=== PATIENT | male | born 1950 | race Caucasian/White ===

== ENCOUNTER 2016-07-23 12:19 | Observation (INO) | payer MEDICARE, BC ==
--- NOTE | 2016-07-23 13:23 | EDM.PDOC ---
ED HISTORY OF PRESENT ILLNESS - General Chief Complaint: Cardiovascular Problem Stated Complaint: IRREGULAR HEART RATE Time Seen by Provider: 07/23/16 12:19 Source: Reports: Patient History Limitations: Reports: No limitations - History of Present Illness INITIAL COMMENTS - FREE TEXT/NARRATIVE: c/o heart fluttering awoke at 4 AM with fluttering in chest, last 1.5h, no CP no sob, no cough, no dyspnea, no f/c/d meds include metoprolol, furosemide, spironolactone, hydralazine pt denies previous cardiac issues, says he had fluttering once last yr, and that he had an arrhythmia yrs ago at [facility] in [place] after a procedure HR 90 to 120 here - Related Data Allergies/ADRs: Allergies Allergy/AdvReac Type Severity Reaction Status Date / Time No Known Allergies Allergy Verified 07/23/16 12:55 ED ROS GENERAL - Review of Systems Review Of Systems: See Below Constitutional: Reports: no symptoms HEENT: Reports: No symptoms Respiratory: Reports: no symptoms Cardiovascular: Reports: Palpitations Endocrine: Reports: no symptoms GI/Abdominal: Reports: No symptoms : Reports: no symptoms Musculoskeletal: Reports: no symptoms Skin: Reports: no symptoms Neurological: Reports: no symptoms Psychiatric: Reports: No symptoms Hematologic/Lymphatic: Reports: no symptoms Immunologic: Reports: no symptoms ED EXAM, GENERAL - Physical Exam Exam: See Below Exam Limited By: Other (sitting in w/c on arrival, alert, cooperative, non ill, no distress) General Appearance: alert, WD/WN, no apparent distress Ears: normal external exam, normal canal, hearing grossly normal, normal TMs Ear Exam: bilateral ear: auricle normal, canal normal, TM normal Nose: normal inspection, normal mucosa, no blood Throat/Mouth: Normal inspection, Normal lips, Normal oropharynx, Normal voice, No airway compromise Head: atraumatic, normocephalic Neck: normal inspection, supple, non-tender, full range of motion Respiratory/Chest: no respiratory distress, lungs clear, normal breath sounds, no accessory muscle use, chest non-tender Cardiovascular: regular rate, rhythm, no edema, no gallop, no rub, other (2/6 VERÓNICA at LSB, quiet precordium) GI/Abdominal: normal bowel sounds, soft, non tender, no organomegaly, no distention, no mass (Male) Exam: Circumcised Back Exam: normal inspection Extremities: normal inspection, normal range of motion, non-tender, normal capillary refill, no pedal edema Neurological: alert, oriented, CN II-XII intact, normal cognition, normal gait, no motor/sensory deficits Psychiatric: normal affect, normal mood Skin Exam: Warm, Dry, Intact, Normal color, No rash Lymphatic: no adenopathy Course - Vital Signs Last Recorded V/S: Last Vital Signs Temp 37.5 C 07/23/16 12:58 Pulse 120 H 07/23/16 12:58 Resp 20 07/23/16 12:58 BP 102/62 07/23/16 12:58 Pulse Ox 97 07/23/16 12:58 - Orders/Labs/Meds Orders: Active Orders 24 hr Category Date Time Status Chest 2V [CR] Stat Exams 07/23/16 12:28 Taken EKG 12 Lead [EK] Routine Ther 07/23/16 12:27 Ordered Labs: Laboratory Tests 07/23/16 07/23/16 07/23/16 Range/Units 12:35 12:35 12:35 WBC 7.7 (4.5-12.0) X10-3/uL RBC 5.86 H (4.30-5.75) x10(6)uL Hgb 16.3 H (11.5-15.5) g/dL Hct 48.7 (30.0-51.3) % MCV 83.1 (80-96) fL MCH 27.7 (27.7-33.6) pg MCHC 33.4 (32.2-35.4) g/dL RDW 14.2 (11.5-15.5) % Plt Count 202 (125-369) X10(3)uL MPV 8.6 (7.4-10.4) fL Neut % (Auto) 64.1 (46-82) % Lymph % (Auto) 19.7 (13-37) % Laporte % (Auto) 11.1 (4-12) % Eos % (Auto) 3 (1.0-5.0) % Baso % (Auto) 2 (0-2) % Neut # 5.0 (1.6-8.3) # Lymph # 1.5 (0.6-5.0) # Laporte # 0.9 (0.0-1.3) # Eos # 0.2 (0.0-0.8) # Baso # 0.1 (0.0-0.2) # Sodium 137 (135-145) mmol/L Potassium 3.7 (3.5-5.3) mmol/L Chloride 108 (100-110) mmol/L Carbon Dioxide 23 (23-29) mmol/L BUN 16 (8-23) mg/dL Creatinine 1.2 (0.6-1.3) mg/dL Est Cr Clr Drug Dosing 75.28 mL/min Estimated GFR (MDRD) > 60 (>60) BUN/Creatinine Ratio 13.3 (9-20) Glucose 149 H (80-116) mg/dL Calcium 8.5 L (8.6-10.2) mg/dL Magnesium (1.8-2.5) mg/dL Total Bilirubin 0.6 (0.1-1.3) mg/dL AST 30 H (5-27) IU/L ALT 22 (14-26) IU/L Alkaline Phosphatase 41 L (56-112) IU/L Troponin I 0.05 (0.02-0.06) NG/ML C-Reactive Protein < 0.5 (0.0-1.0) mg/dL B-Natriuretic Peptide (0-100) pg/mL Total Protein 7.8 (6.0-8.0) g/dL Albumin 4.0 (3.2-4.6) g/dL Globulin 3.8 g/dL Albumin/Globulin Ratio 1.1 07/23/16 07/23/16 Range/Units 12:35 12:45 WBC (4.5-12.0) X10-3/uL RBC (4.30-5.75) x10(6)uL Hgb (11.5-15.5) g/dL Hct (30.0-51.3) % MCV (80-96) fL MCH (27.7-33.6) pg MCHC (32.2-35.4) g/dL RDW (11.5-15.5) % Plt Count (125-369) X10(3)uL MPV (7.4-10.4) fL Neut % (Auto) (46-82) % Lymph % (Auto) (13-37) % Laporte % (Auto) (4-12) % Eos % (Auto) (1.0-5.0) % Baso % (Auto) (0-2) % Neut # (1.6-8.3) # Lymph # (0.6-5.0) # Laporte # (0.0-1.3) # Eos # (0.0-0.8) # Baso # (0.0-0.2) # Sodium (135-145) mmol/L Potassium (3.5-5.3) mmol/L Chloride (100-110) mmol/L Carbon Dioxide (23-29) mmol/L BUN (8-23) mg/dL Creatinine (0.6-1.3) mg/dL Est Cr Clr Drug Dosing mL/min Estimated GFR (MDRD) (>60) BUN/Creatinine Ratio (9-20) Glucose (80-116) mg/dL Calcium (8.6-10.2) mg/dL Magnesium 2.0 (1.8-2.5) mg/dL Total Bilirubin (0.1-1.3) mg/dL AST (5-27) IU/L ALT (14-26) IU/L Alkaline Phosphatase (56-112) IU/L Troponin I (0.02-0.06) NG/ML C-Reactive Protein (0.0-1.0) mg/dL B-Natriuretic Peptide 243 H (0-100) pg/mL Total Protein (6.0-8.0) g/dL Albumin (3.2-4.6) g/dL Globulin g/dL Albumin/Globulin Ratio - Re-Assessments/Exams Free Text/Narrative Re-Assessment/Exam: 07/23/16 14:32 tests reviewed with pt, old EKG from [facility] obtained (none in [place], none here) from 08-14-16 which showed 1st degree AVB at 206 ms, sinus sherman at 56 bpm, otherwise with no significant change c/w 02-11-07/23/16 14:42 d/w Dr Palomares who accepted pt for r/o, pt agreed, meds not in computer, however he has prefilled meds that show hydralazine 100 mg bid, furosemide 40 mg bid, ASA EC 81 mg daily, hydralazine 100 mg tid, spironolactone 25 mg daily, oxybutynin ER 5 mg daily, metoprolol 100 mg BID, amlodipine 2.5 mg daily Departure - Departure Time of Disposition: 14:55 Disposition: DC/Tfer to [facility] Reason for Transfer *Q: Primary PCI Indicated Condition: fair Clinical Impression: Ectopic atrial tachycardia, Prolonged QT interval, History of first degree AV block Referrals: Tyron Dawson MD [Primary Care Provider] - Forms: ED Department Discharge - My Orders Last 24 Hours: My Active Orders 07/23/16 12:27 EKG 12 Lead [EK] Routine 07/23/16 12:28 Chest 2V [CR] Stat - Assessment/Plan Last 24 Hours: My Active Orders 07/23/16 12:27 EKG 12 Lead [EK] Routine 07/23/16 12:28 Chest 2V [CR] Stat
[2016-07-23] MEDS ORDERED: Enoxaparin 60 MG/0.6 ML Syringe SUBCUT SCH (15:45)
[2016-07-23] MEDS ORDERED: Sodium Chloride 0.9% 10 ML Syringe FLUSH PRN (15:49)
[2016-07-23] MEDS ORDERED: Metoprolol Tartrate 100 MG Tab PO ONE (17:00)
[2016-07-23] MEDS ORDERED: METOPROLOL TARTRATE 100 MG PO SCH (19:00)
[2016-07-23] MEDS ORDERED: ASPIRIN 81 MG PO SCH (19:00)
[2016-07-23] MEDS: HYDRALAZINE HCL 100 MG PO SCH (19:20)
[2016-07-23] MEDS ORDERED: Non-Formulary Medication 1 Each (Furosemide [Furosemide] 40 MG) PO SCH (21:00)
--- NOTE | 2016-07-23 23:55 | HP ---
ADMISSION DATE: 07/23/2016 CHIEF COMPLAINT: Rapid irregular heartbeat giving him a "funny feeling in his chest." HISTORY OF PRESENT ILLNESS: This patient is a 66-year-old male with a previous history of obesity, hypertension, obstructive sleep apnea, and stasis edema of the lower extremities, who was admitted after being seen in the emergency room with the above chief complaint. The patient states that he was doing well until this morning. He awoke early in the morning with this funny sensation in his chest. He then noticed he had to go to the bathroom. He urinated and came back to bed and his checked his pulse and she noticed it was quite fast. He laid down for a while. He said he had to get up a couple of more times to urinate, but it just has not gotten any better. He says he will slow down some and if he exerts himself he notices that he just feels this rapid irregular beat. He denies any significant shortness of breath or if there is some, it is very minimal. He has had no nausea or vomiting. No chest pain has been associated with it. There has been no diaphoresis. He said this happened once before when he was at [facility] getting a CSF leak plugged in his head. He said it only lasted a few minutes, and then resolved. He thinks maybe he has had it about a year ago also, but again, just for short time and never did anything different. He has a longstanding history of hypertension, but no previous history of heart disease. Denies any history of diabetes. He has been taking hydralazine 100 mg t.i.d. along with metoprolol 100 mg b.i.d., spironolactone 25 mg daily, Lasix 40 mg b.i.d., amlodipine 2.5 mg daily, aspirin 81 mg daily, and oxybutynin extended-release 5 mg daily. ALLERGIES: None that are known. SOCIAL HISTORY: He has never used tobacco products other than chewing tobacco and was always very minimal. He said he quit that a couple of years ago. Alcohol rarely now. He said had in the past he drank a fair amount, but that has been a number of years now. 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 He was at [facility] and had operative procedure done x3. Eventually, it was plugged. As I said, he has longstanding history of hypertension. He has no previous other surgeries. He was diagnosed with obstructive sleep apnea 5 or 6 years ago and has been using CPAP machine since with good results. No previous history of diabetes. PAST SURGICAL HISTORY: No other surgeries other than teeth extraction. FAMILY HISTORY: Both parents have . Father he thinks was in his 80s and had complications of heart attacks and strokes. Mother had MS and from complications of that in her 70s. He had 1 brother, who in his 30s, he apparently had some trauma and eventually from pneumonia. REVIEW OF SYSTEMS: Full review of systems was discussed. Other than that mentioned above, he recently developed some right lateral knee pain a couple of weeks ago. He says he was just standing and his foot slipped outward. He did not think much of it after some initial pain, but then has since had this pain in the lateral aspect of the right knee, especially with movement or long periods of standing. No joint effusion, erythema, or warmth has been noted. He does admit to nocturia x1, but thinks it may be related to the diuretic he takes at 1900 hours. He has had some problems with urge incontinence in the past. He does admit to some occasional low back pain without radiation. No bowel incontinence has been noted. He has had no abdominal complaints or GI complaints other than some occasional bright red blood in the stool, but he thinks that maybe related to the hemorrhoids. PHYSICAL EXAMINATION: VITAL SIGNS: At this time, showed his initial temp to be 99.5, pulse is 120 and regular, blood pressure 102/62, respirations are 20, and O2 saturation on room air is 97%. Height was 6 foot 5 inches, weight is 453 pounds. GENERAL: Well-developed large gentleman, who otherwise appears to be in no acute distress. HEENT: Head was normocephalic and atraumatic. Pupils are round, react well to light and accommodation. Extraocular movements were intact. Sclerae and conjunctivae were clear. He has bilateral cataracts. TMs were both clear. Nasal passages were open. No discharge is noted at this time. The pharynx and palate were unremarkable except for upper plate there were no teeth noted in the mandible. NECK: Supple. Carotid pulses strong and equal without bruits. Thyroid was not enlarged. Range of motion of his neck is decreased without spinous process tenderness. MUSCULOSKELETAL: No actual CVA tenderness was noted. He does have a little bit of tenderness in the low lumbar region at approximately L5 to palpation in the midline. Range of motion was decreased in the lumbar spine. Straight leg raising was negative to 90 degrees, however. CHEST: Clear to auscultation and percussion. No chest wall tenderness was noted. CARDIOVASCULAR: Revealed a normal S1 and S2 with a soft systolic murmur heard along the left sternal border. The above-mentioned tachycardia was noted and actually was fairly regular. ABDOMEN: Soft, obese, nontender without organomegaly or masses. Bowel sounds are normal. No bruits are noted. GENITALIA: Revealed a normal circumcised male with some mild scrotal swelling, presumably secondary to hydroceles. No other masses were identified. EXTREMITIES: Just had trace to 1+ edema about the ankles, but it was minimal. No ulcerations or areas of breakdown. He has some point tenderness along the lateral joint line in the right knee without joint effusion, erythema, or warmth. No crepitation was noted. No ulcerations or areas of breakdown were noted in the lower extremities. Capillary refill was normal. SKIN: Positive for multiple seborrheic keratosis, otherwise no ulcerations or other abnormalities were identified. LABORATORY DATA: Initial EKG showed what appears to be an atrial tachycardia at a rate of approximately 120 to 130, may be an SVT with 2:1, conduction but it is very difficult to see. Chest x-ray was unremarkable. No significant cardiomegaly. No infiltrates were identified. Some degenerative changes were noted in his thoracic spine. CBC revealed a hemoglobin of 16.3, hematocrit of 48.7, white count is 7700 with normal differential, and platelets were normal at 202,000. Sodium 137, potassium of 3.7, chloride is 108, CO2 was 23, creatinine 1.2, BUN of 16, random glucose 149, calcium 8.5, and magnesium was normal 2. Liver functions were normal except for slight elevation in AST at 30. Troponin was 0.05. C-reactive protein was less than 0.5. BNP was slightly elevated at 243. D-dimer was normal total protein 7.8 and albumin of 4.0. IMPRESSION: 1. Symptomatic, appears to be in atrial tachycardia, wondering if it is 2:1 conduction. 2. History of hypertension. 3. Obstructive sleep apnea. 4. Obesity. 5. History of urge incontinence. PLAN: We will check a TSH in the morning. I am going to increase his metoprolol to 150 mg b.i.d. We will monitor his O2 saturation through the night while on CPAP. He asked me about his heart murmur and apparently that is new. We will see if we can get him scheduled for an echocardiogram in the near future. We will recheck a serum troponin to be sure no cardiac damage has been done and we will proceed from there. /[id number] /GERALD
[2016-07-24] MEDS ORDERED: FUROSEMIDE 40 MG PO SCH (08:00)
[2016-07-24] MEDS: HYDRALAZINE HCL 100 MG PO SCH (08:25)
[2016-07-24 08:28] VITALS: BP 140/61
[2016-07-24] MEDS ORDERED: Metoprolol Tartrate 50 MG Tab PO SCH (09:00)
--- NOTE | 2016-07-24 12:03 | CR ---
INDICATION: Palpitations. CHEST: Three PA views and a lateral view of the chest were obtained 2016 - no comparisons available. Overlying snaps are noted. The heart is normal in size and shape. Diaphragm leaves are somewhat flattened, compatible with COPD along with the increased AP diameter and hyperaeration of mild degree. Bridging hyperostotic changes are noted in the mid to lower thoracic spine. A definite active infiltrate or effusion was not identified. IMPRESSION: 1. No acute process. 2. Probable COPD. 3. DJD spine. MTDD
--- NOTE | 2016-07-24 12:34 | PN ---
DATE SEEN: 07/24/2016 SUBJECTIVE: Mr. Soto is seen today for followup. During the night, his rhythm converted back to sinus rhythm with much lower rate and tachycardia resolved. He says this morning, he actually feels good and has had no difficulties whatsoever. Denies any nausea, vomiting, or diarrhea. He had a CPAP brought in and he slept well. He has had no other complaints or concerns other than constipation. He says now that he takes two of his senna-S b.i.d. for that. OBJECTIVE: GENERAL: He appears to be quite comfortable and at this time in no acute distress. VITAL SIGNS: Blood pressure 140/61, pulse is 62 and at this time regular, respirations were 20 and unlabored, O2 saturation was 97%. HEENT: Unremarkable. CHEST: Completely clear. CARDIOVASCULAR: Revealed a regular rhythm without murmur, rub, or gallop. ABDOMEN: Quite obese, but otherwise unremarkable. EXTREMITIES: Had just a trace edema about the ankles, otherwise no other abnormalities were noted. LABORATORY DATA: Followup troponin was slightly elevated yesterday afternoon at 0.08, it went down to 0.05, but I believe that is probably related to the tachycardia he had as he had no chest pain or other abnormality. IMPRESSION: 1. Recent episode of what appeared to be atrial fib/flutter with rapid ventricular rate that has since resolved. 2. Hypertension. 3. Obstructive sleep apnea. 4. Obesity. 5. History of urge incontinence. PLAN: At this point, recommended no changes. He will be discharged home, and we will arrange for an outpatient echocardiogram, await results of his TSH. We will keep him on the increased dose of metoprolol 150 mg b.i.d. He will follow up with his regular physician at the end of the week for recheck. If there are other problems or new symptoms are noted to let us know and we can certainly re- evaluate. /[id number] /GERALD
[2016-07-24] MEDS ORDERED: Enoxaparin 60 MG/0.6 ML Syringe SUBCUT SCH (16:00)
== END 2016-07-24 14:20 | disposition home or self-care (01) ==
LOC: FB.ED 12:19 → FB.MS 15:00
PROVIDERS: ADMIT Family Medicine; ATTEND Family Medicine
DX: I47.1 Supraventricular tachycardia (principal); I10 Essential (primary) hypertension; G47.33 Obstructive sleep apnea (adult) (pediatric); E66.9 Obesity, unspecified; R32 Unspecified urinary incontinence; Z98.890 Other specified postprocedural states; Z79.82 Long term (current) use of aspirin; Z79.899 Other long term (current) drug therapy
CPT/HCPCS: 36415; 71020; 80053; 83735; 83880; 84443; 84484; 85025; 85379; 86140; 93005; 96372; 99284; A9270; G0378; J1650; J7050; 99219; 99285

== ENCOUNTER 2018-10-22 07:41 | Day surgery (SDC) | payer MEDICARE, BC ==
[2018-10-22] MEDS ORDERED: Midazolam 1 MG/ML 2 ML SDV IV ONE (07:42)
[2018-10-22] MEDS ORDERED: Propofol 200 MG/20 ML SDV IV ONE (07:42)
[2018-10-22] MEDS: Lactated Ringers 1,000 ML IV SCH (08:47)
--- NOTE | 2018-10-22 10:02 | PCM.OPNOTE ---
- General Post-Op/Procedure Note Date of Surgery/Procedure: 10/22/18 Operative Procedure(s): c scope Findings: normal exam to transverse colon Pre Op Diagnosis: screening Post-Op Diagnosis: nl exam to transverse colon Anesthesia Technique: General LMA Primary Surgeon: Dmitri Garvey Anesthesia Provider: Lenny Moran Pathology: incomplete exam Complications: None Condition: Good Free Text/Narrative:: see dictation
[2018-10-22 12:16] VITALS: BP 160/93
--- NOTE | 2018-10-22 16:23 | OR ---
DATE OF OPERATION: 10/22/2018 SURGEON: Dmitri Garvey MD PROCEDURE PERFORMED: Colonoscopy to mid-transverse colon. PREOPERATIVE DIAGNOSIS: Need for screening C-scope. POSTOPERATIVE DIAGNOSIS: Normal exam. INDICATIONS FOR PROCEDURE: This is a 68-year-old white male referred for screening colonoscopy. DESCRIPTION OF PROCEDURE: After an excellent LMA anesthetic was administered, which was performed in the operating room due to the patient's size of approximately 400 pounds. The patient was placed in left lateral position. Digital rectal exam was performed. No marked abnormality was noted. The flexible colonoscope was inserted and advanced to the mid-transverse colon. At this point, we were unable to advance the scope farther due to the size of his pannus. Normal maneuvers to flatten out any loop were unsuccessful due to the patient's obesity. The scope was then slowly withdrawn. The following findings were noted. Transverse colon, unremarkable. Descending colon, unremarkable. Sigmoid and rectum, unremarkable. We will be obtaining a contrast barium enema to clear the remainder of his colon. /[id number] /GERALD
== END 2018-10-22 09:47 | disposition home or self-care (01) ==
LOC: FB.SDS 07:41
PROVIDERS: ATTEND Surgery
DX: Z12.11 Encounter for screening for malignant neoplasm of colon (principal); I10 Essential (primary) hypertension; I25.110 Atherosclerotic heart disease of native coronary artery with unstable angina pectoris; E78.00 Pure hypercholesterolemia, unspecified; F41.9 Anxiety disorder, unspecified; F41.0 Panic disorder [episodic paroxysmal anxiety]; G47.33 Obstructive sleep apnea (adult) (pediatric); E66.01 Morbid (severe) obesity due to excess calories; Z68.43 Body mass index [BMI] 50.0-59.9, adult; Z99.89 Dependence on other enabling machines and devices; Z95.5 Presence of coronary angioplasty implant and graft; Z87.891 Personal history of nicotine dependence; Z79.82 Long term (current) use of aspirin; Z79.899 Other long term (current) drug therapy
CPT/HCPCS: 00812-QZ; J2250; J2704; J7120

== ENCOUNTER 2021-03-11 15:50 | Emergency (ER) | payer MEDICARE, BC ==
[2021-03-11] MEDS ORDERED: Diltiazem 25 MG/5 ML SDV IVPUSH ONE (16:08)
[2021-03-11] MEDS ORDERED: ALPRAZolam 1 MG Tab PO ONE (16:11)
[2021-03-11] MEDS ORDERED: Famotidine 20 MG/2 ML SDV IVPUSH PRN (16:32)
[2021-03-11] MEDS ORDERED: EPINEPHrine 1 MG/ML SDV IM PRN (16:32)
[2021-03-11] MEDS ORDERED: methylPREDNISolone Sodium Succinate 125 MG/2 ML SDV IVPUSH PRN (16:32)
[2021-03-11] MEDS ORDERED: diphenhydrAMINE 50 MG/ML SDV IVPUSH PRN (16:32)
[2021-03-11] MEDS ORDERED: Bamlanivimab 700 MG, ETESEVIMAB 1,400 MG in Sodium Chloride 0.9% 100 ML IV ONE (16:32)
[2021-03-11] MEDS ORDERED: Sodium Chloride 0.9% 10 ML Syringe FLUSH SCH (16:45)
--- NOTE | 2021-03-11 16:47 | EDM.PDOC ---
ED HPI GENERAL MEDICAL PROBLEM - General Chief Complaint: Fever Stated Complaint: body aches , fever , shortness of breath Time Seen by Provider: 03/11/21 16:10 Source of Information: Reports: Patient, Provider History Limitations: Reports: No Limitations - History of Present Illness INITIAL COMMENTS - FREE TEXT/NARRATIVE: pt is sent in from clinic with symptoms of sob , cough , weakness , fatigue had COVID test done : was positive pt also had AFib with RVR : 180- 170's pt had RR of 30's was not taken by the Er due to these symptoms States he is not sure where he got contact from had been vaccinated in August - Related Data Allergies Allergy/AdvReac Type Severity Reaction Status Date / Time No Known Allergies Allergy Verified 10/21/18 14:50 Home Meds: Home Meds Aspirin [Halfprin] 81 mg PO 07/23/16 [History] Furosemide 40 mg PO BID 07/23/16 [History] Oxybutynin [Oxybutynin ER] 5 mg PO 07/23/16 [History] Spironolactone [Aldactone] 25 mg PO DAILY 07/23/16 [History] amLODIPine Besylate [Norvasc] 2.5 mg PO DAILY 07/23/16 [History] hydrALAZINE HCl [Hydralazine HCl] 100 mg PO ,,07/23/16 [History] ALPRAZolam [Alprazolam] 0.5 - 1 tab PO TID PRN 10/21/18 [History] Acetaminophen/Diphenhydramine [Tylenol Pm Ex-Strength Caplet] 2 tab PO BEDTIME PRN 10/21/18 [History] Docusate Sodium/Sennosides [Senna Plus] 2 tab PO DAILY 10/21/18 [History] Isosorbide Mononitrate [Isosorbide Mononitrate ER] 1 tab PO DAILY 10/21/18 [History] Melatonin 1 tab PO BEDTIME PRN 10/21/18 [History] Nitroglycerin [Nitrostat] 1 tab SL ASDIRECTED PRN 10/21/18 [History] Tamsulosin HCl [Flomax] 1 cap PO DAILY 10/21/18 [History] atorvaSTATin [Lipitor] 40 mg PO DAILY 10/21/18 [History] Metoprolol Tartrate [Lopressor] 100 mg PO 03/11/21 [History] dexAMETHasone [Dexamethasone] 6 mg PO DAILY #15 tablet 03/11/21 [Rx] Past Medical History HEENT History: Reports: Cataract 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 Cardiovascular History: Reports: CAD, Hypertension Respiratory History: Reports: Sleep Apnea Gastrointestinal History: Reports: None Genitourinary History: Reports: Urinary Incontinence, Other (See Below) Other Genitourinary History: urgency Musculoskeletal History: Reports: None Other Neuro History: HYDROCELE Psychiatric History: Reports: None Endocrine/Metabolic History: Reports: Obesity/BMI 30+ Hematologic History: Reports: None Immunologic History: Reports: None Oncologic (Cancer) History: Reports: None Dermatologic History: Reports: None - Past Surgical History Head Surgeries/Procedures: Reports: None Other HEENT Surgeries/Procedures: SEPTOPLASTY Cardiovascular Surgical History: Reports: Coronary Artery Stent Respiratory Surgical History: Reports: None GI Surgical History: Reports: None Male Surgical History: Reports: None Endocrine Surgical History: Reports: None Neurological Surgical History: Reports: Other (See Below) Other Neurological Surgeries/Procedures: CSF leak repair x 3 Musculoskeletal Surgical History: Reports: None Oncologic Surgical History: Reports: None Dermatological Surgical History: Reports: None Social & Family History - Family History Family Medical History: No Pertinent Family History - Caffeine Use Caffeine Use: Reports: Tea ED ROS GENERAL - Review of Systems Review Of Systems: See Below Constitutional: Reports: Chills, Malaise, Weakness, Fatigue HEENT: Reports: No Symptoms Respiratory: Reports: Shortness of Breath, Cough Cardiovascular: Reports: Dyspnea on Exertion Endocrine: Reports: No Symptoms GI/Abdominal: Reports: No Symptoms Musculoskeletal: Reports: No Symptoms Skin: Reports: No Symptoms Neurological: Reports: Dizziness Psychiatric: Reports: Anxiety Hematologic/Lymphatic: Reports: No Symptoms Immunologic: Reports: No Symptoms ED EXAM, GENERAL - Physical Exam Exam: See Below Exam Limited By: No Limitations General Appearance: Alert, WD/WN, No Apparent Distress, Anxious Eye Exam: Bilateral Eye: EOMI Nose: Normal Mucosa Throat/Mouth: Normal Oropharynx Head: Atraumatic, Normocephalic Neck: Supple, Non-Tender Respiratory/Chest: Chest Non-Tender, Decreased Breath Sounds, Rales Cardiovascular: Regular Rate, Rhythm GI/Abdominal: Soft, Non-Tender Back Exam: Full Range of Motion. No: CVA Tenderness (R), CVA Tenderness (L) Extremities: Normal Range of Motion, Non-Tender Neurological: Alert, Oriented, CN II-XII Intact Psychiatric: Anxious Skin Exam: Warm, Dry, Intact Lymphatic: No Adenopathy #1 Interpretation EKG Date: 03/11/21 Time: 15:48 Rhythm: A-Fib Rate (Beats/Min): 174 [place]: LAD-Left [place] Deviation P-Wave: Variable QRS: Other (Left anterior fascicular block) ST-T: Other (irregular) Comparison: NA - No Prior EKG EKG Interpretation Comments: Afib with rapid ventricular response #2 Interpretation EKG Date: 03/11/21 Time: 17:00 Rhythm: A-Fib Rate (Beats/Min): 135 [place]: LAD-Left [place] Deviation P-Wave: Variable ST-T: Normal QT: Prolonged (borderline) Course - Vital Signs Last Recorded V/S: Last Vital Signs Temp 36.6 C 03/11/21 16:08 Pulse 91 03/11/21 19:05 Resp 28 H 03/11/21 19:05 BP 122/83 03/11/21 19:05 Pulse Ox 93 L 03/11/21 19:05 - Orders/Labs/Meds Orders: Active Orders 24 hr Category Date Time Status Vital Signs [RC] Q15M Care 03/11/21 16:32 Active Chest 1V Frontal [CR] Stat Exams 03/11/21 16:10 Taken TROPONIN I [CHEM] Stat Lab 03/11/21 19:00 Received EPINEPHrine [Adrenalin] Med 03/11/21 16:32 Active 0.3 mg IM ASDIRECTED PRN Famotidine [Pepcid] Med 03/11/21 16:32 Active 20 mg IVPUSH ASDIRECTED PRN Sodium Chloride 0.9% [Saline Flush] Med 03/11/21 16:45 Active 30 ml FLUSH ASDIRECTED diphenhydrAMINE [Benadryl] Med 03/11/21 16:32 Active 50 mg IVPUSH ASDIRECTED PRN methylPREDNISolone Sod Succ [Solu-MEDROL] Med 03/11/21 16:32 Active 125 mg IVPUSH ASDIRECTED PRN EKG 12 Lead [EK] Routine Ther 03/11/21 16:09 Ordered EKG 12 Lead [EK] Routine Ther 03/11/21 16:57 Ordered Medication Orders Diphenhydramine HCl (Diphenhydramine 50 Mg/Ml Sdv) 50 mg IVPUSH ASDIRECTED PRN PRN Reason: hypersensitivity reaction Epinephrine HCl (Epinephrine 1 Mg/Ml Sdv) 0.3 mg IM ASDIRECTED PRN PRN Reason: hypersensitivity reaction Famotidine (Famotidine 20 Mg/2 Ml Sdv) 20 mg IVPUSH ASDIRECTED PRN PRN Reason: hypersensitivity reaction Methylprednisolone Sodium Succinate (Methylprednisolone Sodium Succinate 125 Mg/2 Ml Sdv) 125 mg IVPUSH ASDIRECTED PRN PRN Reason: hypersensitivity reaction Sodium Chloride (Sodium Chloride 0.9% 10 Ml Syringe) 30 ml FLUSH ASDIRECTED JEISON Last Admin: 03/11/21 17:41 Dose: 30 ml Documented by: REGINO Labs: Laboratory Tests 03/11/21 03/11/21 03/11/21 Range/Units 16:00 16:00 16:00 WBC 10.8 H (3.2-10.1) x10-3/uL RBC 5.74 (3.90-5.90) x10(6)uL Hgb 15.9 (12.9-17.7) g/dL Hct 47.9 (38.3-50.1) % MCV 83.5 (80.8-98.7) fL MCH 27.6 (27.0-33.3) pg MCHC 33.1 (28.7-35.3) g/dL RDW 15.2 H (12.4-15.0) % Plt Count 167 (117-477) x10(3)uL MPV 7.8 (6.7-11.0) fL Add Manual Diff Yes Neutrophils % (Manual) 86 H (46-82) % Lymphocytes % (Manual) 6 L (13-37) % Monocytes % (Manual) 8 (4-12) % Anisocytosis Rare D-Dimer, Quantitative (0.0-0.59) mg/LFEU Sodium 138 (135-145) mmol/L Potassium 3.2 L (3.5-5.3) mmol/L Chloride 103 (100-110) mmol/L Carbon Dioxide 18 L (21-32) mmol/L BUN 26 H (7-18) mg/dL Creatinine 1.8 H (0.70-1.30) mg/dL Est Cr Clr Drug Dosing TNP Estimated GFR (MDRD) 37 L (>60) BUN/Creatinine Ratio 14.4 (9-20) Glucose 134 H (80-116) mg/dL Calcium 8.5 L (8.6-10.2) mg/dL Total Bilirubin 1.2 (0.1-1.3) mg/dL AST 48 H (5-25) IU/L ALT 55 H (12-36) U/L Alkaline Phosphatase 48 L (56-112) IU/L Troponin I 76.1 H* (4.0-60.3) pg/mL Total Protein 7.6 (6.0-8.0) g/dL Albumin 3.0 L (3.2-4.6) g/dL Globulin 4.6 g/dL Albumin/Globulin Ratio 0.7 03/11/ Range/Units 16:00 WBC (3.2-10.1) x10-3/uL RBC (3.90-5.90) x10(6)uL Hgb (12.9-17.7) g/dL Hct (38.3-50.1) % MCV (80.8-98.7) fL MCH (27.0-33.3) pg MCHC (28.7-35.3) g/dL RDW (12.4-15.0) % Plt Count (117-477) x10(3)uL MPV (6.7-11.0) fL Add Manual Diff Neutrophils % (Manual) (46-82) % Lymphocytes % (Manual) (13-37) % Monocytes % (Manual) (4-12) % Anisocytosis D-Dimer, Quantitative 0.88 H (0.0-0.59) mg/LFEU Sodium (135-145) mmol/L Potassium (3.5-5.3) mmol/L Chloride (100-110) mmol/L Carbon Dioxide (21-32) mmol/L BUN (7-18) mg/dL Creatinine (0.70-1.30) mg/dL Est Cr Clr Drug Dosing Estimated GFR (MDRD) (>60) BUN/Creatinine Ratio (9-20) Glucose (80-116) mg/dL Calcium (8.6-10.2) mg/dL Total Bilirubin (0.1-1.3) mg/dL AST (5-25) IU/L ALT (12-36) U/L Alkaline Phosphatase (56-112) IU/L Troponin I (4.0-60.3) pg/mL Total Protein (6.0-8.0) g/dL Albumin (3.2-4.6) g/dL Globulin g/dL Albumin/Globulin Ratio Meds: Medications Generic Name Dose Route Start Last Admin Trade Name Freq PRN Reason Stop Dose Admin Diphenhydramine HCl 50 mg 03/11/21 16:32 Diphenhydramine 50 Mg/Ml Sdv IVPUSH ASDIRECTED PRN hypersensitivity reaction Epinephrine HCl 0.3 mg 03/11/21 16:32 Epinephrine 1 Mg/Ml Sdv IM ASDIRECTED PRN hypersensitivity reaction Famotidine 20 mg 03/11/21 16:32 Famotidine 20 Mg/2 Ml Sdv IVPUSH ASDIRECTED PRN hypersensitivity reaction Methylprednisolone Sodium Succinate 125 mg 03/11/21 16:32 Methylprednisolone Sodium Succinate 125 Mg/2 Ml Sdv IVPUSH ASDIRECTED PRN hypersensitivity reaction Sodium Chloride 30 ml 03/11/21 16:45 03/11/21 17:41 Sodium Chloride 0.9% 10 Ml Syringe FLUSH 30 ml ASDIRECTED JEISON Administration Discontinued Medications Generic Name Dose Route Start Last Admin Trade Name Freq PRN Reason Stop Dose Admin Alprazolam 1 mg 03/11/21 16:11 03/11/21 16:22 Alprazolam 1 Mg Tab PO 03/11/21 16:12 1 mg ONETIME ONE Administration Amlodipine Besylate 2.5 mg 03/11/21 18:07 03/11/21 18:35 Amlodipine 2.5 Mg Tab PO 03/11/21 18:08 2.5 mg ONETIME ONE Administration Diltiazem HCl 20 mg 03/11/21 16:08 03/11/21 16:15 Diltiazem 25 Mg/5 Ml Sdv IVPUSH 03/11/21 16:09 20 mg ONETIME ONE Administration Hydralazine HCl 100 mg 03/11/21 18:06 03/11/21 19:00 Hydralazine 50 Mg Tab PO 03/11/21 18:07 Not Given NOW STA Bamlanivimab 700 mg/ 160 mls @ 310 mls/hr 03/11/21 16:32 03/11/21 16:52 Etesevimab 1,400 mg/ Sodium IV 03/11/21 17:02 310 mls/hr Chloride ONETIME ONE Administration Metoprolol Tartrate 100 mg 03/11/21 18:11 03/11/21 18:24 Metoprolol Tartrate 100 Mg Tab PO 03/11/21 18:12 100 mg NOW STA Administration Potassium Chloride 40 meq 03/11/21 16:54 03/11/21 17:25 Potassium Chloride 20 Meq Tab.Er PO 03/11/21 16:55 40 meq ONETIME ONE Administration Spironolactone 25 mg 03/11/21 18:08 03/11/21 18:24 Spironolactone 25 Mg Tab PO 03/11/21 18:09 25 mg ONETIME ONE Administration - Re-Assessments/Exams Free Text/Narrative Re-Assessment/Exam: 03/11/21 18:18 Pt being treated for COVID symptoms improved Also noted to have Afib with RVR : pt given Fluid and Cardizem: Rate decreased . Elevated troponin noted . Cardiology consulted : demand ischemia from viral infection or dehydration . Ok to treat conservatively , with rate control and repeat troponins. Follow up with outpatient Cardiology if needed 03/11/21 19:12 pt signed out to next provider Departure - Departure Time of Disposition: 09:12 Disposition: Home, Self-Care 01 Clinical Impression: COVID-19, Troponin level elevated, Hypokalemia Clinical Impression: (Ruled Out): Acute hyperkalemia - Discharge Information *PRESCRIPTION DRUG MONITORING PROGRAM REVIEWED*: Not Applicable *COPY OF PRESCRIPTION DRUG MONITORING REPORT IN PATIENT MAISHA: Not Applicable Prescriptions: dexAMETHasone [Dexamethasone] 6 mg PO DAILY #15 tablet Referrals: PCP,Unknown [Primary Care Provider] - Forms: ED Department Discharge Sepsis Event Note (ED) - Focused Exam Vital Signs: Vital Signs Temp Pulse Pulse Resp BP BP Pulse Ox 03/11/21 19:05 91 28 H 122/83 93 L 03/11/21 19:00 122/83 03/11/21 18:45 133 H 18 139/91 H 94 L 03/11/21 18:35 141/77 H 03/11/21 18:24 112 H 141/77 H 03/11/21 17:30 116 H 27 H 145/74 H 92 L 03/11/21 17:15 124 H 11 L 144/107 H 93 L 03/11/21 17:02 122 H 17 144/107 H 95 03/11/21 16:08 36.6 C 164 H 127 H 145/105 H 94 L - My Orders Last 24 Hours: My Active Orders 03/11/21 16:09 EKG 12 Lead [EK] Routine 03/11/21 16:10 Chest 1V Frontal [CR] Stat 03/11/21 16:32 Vital Signs [RC] Q15M EPINEPHrine [Adrenalin] 0.3 mg IM ASDIRECTED PRN Famotidine [Pepcid] 20 mg IVPUSH ASDIRECTED PRN diphenhydrAMINE [Benadryl] 50 mg IVPUSH ASDIRECTED PRN methylPREDNISolone Sod Succ [Solu-MEDROL] 125 mg IVPUSH ASDIRECTED PRN 03/11/21 16:45 Sodium Chloride 0.9% [Saline Flush] 30 ml FLUSH ASDIRECTED 03/11/21 16:57 EKG 12 Lead [EK] Routine 03/11/21 19:00 TROPONIN I [CHEM] Stat - Assessment/Plan Last 24 Hours: My Active Orders 03/11/21 16:09 EKG 12 Lead [EK] Routine 03/11/21 16:10 Chest 1V Frontal [CR] Stat 03/11/21 16:32 Vital Signs [RC] Q15M EPINEPHrine [Adrenalin] 0.3 mg IM ASDIRECTED PRN Famotidine [Pepcid] 20 mg IVPUSH ASDIRECTED PRN diphenhydrAMINE [Benadryl] 50 mg IVPUSH ASDIRECTED PRN methylPREDNISolone Sod Succ [Solu-MEDROL] 125 mg IVPUSH ASDIRECTED PRN 03/11/21 16:45 Sodium Chloride 0.9% [Saline Flush] 30 ml FLUSH ASDIRECTED 03/11/21 16:57 EKG 12 Lead [EK] Routine 03/11/21 19:00 TROPONIN I [CHEM] Stat
[2021-03-11] MEDS ORDERED: Potassium Chloride 20 MEQ Tab.ER PO ONE (16:54)
[2021-03-11] MEDS ORDERED: hydrALAZINE 50 MG Tab PO STA (18:06)
[2021-03-11] MEDS ORDERED: amLODIPine 2.5 MG Tab PO ONE (18:07)
[2021-03-11] MEDS ORDERED: Spironolactone 25 MG Tab PO ONE (18:08)
[2021-03-11] MEDS ORDERED: Metoprolol Tartrate 100 MG Tab PO STA (18:11)
[2021-03-11 19:00] VITALS: BP 122/83
[2021-03-11 19:05] VITALS: PULSE 91
--- NOTE | 2021-03-14 10:28 | CR ---
INDICATION: COVID diagnosed 03/11/21. CHEST, ONE VIEW: AP upright portable view of the chest 03/11/21 is compared with 07/23/16 and revealed an appearance of heavy markings at the lung bases and lower lung combs. Some patchy infiltration may be present in those areas. This could be confirmed by CT, as necessary. No definite pleural effusion was seen. The heart is normal in size and shape. Overlying EKG leads and snaps are noted. IMPRESSION: Heavy markings in the lower lung combs, new compared with 2017, may represent areas of patchy pneumonia. MTDD
== END 2021-03-11 20:00 | disposition home or self-care (01) ==
LOC: FB.ED 15:50
DX: U07.1 COVID-19 (principal); E87.6 Hypokalemia; R79.89 Other specified abnormal findings of blood chemistry; I25.10 Atherosclerotic heart disease of native coronary artery without angina pectoris; I10 Essential (primary) hypertension; E66.9 Obesity, unspecified; Z68.42 Body mass index [BMI] 45.0-49.9, adult; Z79.82 Long term (current) use of aspirin; Z79.899 Other long term (current) drug therapy
CPT/HCPCS: 71045; 80053; 84484; 85025; 85379; 93005; 96374; 99285; A9270; J3490; M0245; Q0245